=== PATIENT | female | born 1950 | race Caucasian/White ===

== ENCOUNTER 2020-12-19 14:09 | Outpatient (REF) | payer MEDICARE, SELFPAY ==
[2020-12-19 22:11] LABS: Vitamin D 25 Total 55.6 ng/mL (30-100)
[2020-12-19 22:16] LABS: Anion Gap 6.8 mmol/L (3-11); BUN 23 mg/dL (7-18); CO2 31.2 mmol/L (21.0-32.0); CREATININE 0.8 mg/dL (0.55-1.02); Calcium 8.9 mg/dL (8.5-10.1); Calculated LDL 83 mg/dL (<100); Chloride 105 mmol/L (98-107); Cholesterol 147 mg/dL (<200); Glucose 89 mg/dL (74-106); HDL Cholesterol 48 mg/dL (40-60); Potassium 4.1 mmol/L (3.5-5.1); Sodium 143 mmol/L (136-145); Triglyceride 80 mg/dL (<150); Vitamin B12 788 pg/mL (193-986)
== END 2020-12-19 14:10 | disposition home or self-care (01) ==
LOC: NCHCN 14:09
PROVIDERS: PCP Family Medicine; Visit Provider Nurse Practitioner Family
DX: E53.8 Deficiency of other specified B group vitamins (principal); E55.9 Vitamin D deficiency, unspecified; I10 Essential (primary) hypertension; E78.00 Pure hypercholesterolemia, unspecified
CPT/HCPCS: 80048; 80061; 82306; 82607; 84443

== ENCOUNTER → 2021-01-19 02:04 | Outpatient (CLI) | payer MEDICARE, SELFPAY ==
--- NOTE | 2021-01-19 | DI.US_ITS ---
Exam(s) US CAROTID EXAM: US CAROTID CLINICAL HISTORY: BILAT CAROTID ARTERY ATHEROSCLEROSIS,I65.23. TECHNIQUE: Ultrasound carotids performed using grayscale, color-flow, and spectral Doppler imaging. COMPARISON: No exams were available for comparison FINDINGS: CAROTID ARTERIES: There is some plaque noted in both common carotid arteries and carotid bulbs without elevated velocit ies at these levels. Mild plaque is noted level the proximal internal carotid arteries and their mil dly elevated velocities at mid ICA levels in the neck. Estimated stenosis moderate, approximately 50 -69 percent bilaterally. On this study the distal right ICA in the neck was not able visualized due significant tortuosity of this vessel. VERTEBRAL ARTERIES: Antegrade flow. Measurements: R Bulb: 59.8cm/s PS / 9cm/s ED R CCA: 77.1cm/s PS / 12.2cm/s ED R ECA: 151.8cm/s PS / 10.2cm/s ED R ICA Prox: 99cm/s PS /17.6cm/s ED R ICA Mid: 143.8cm/s PS / 25.6cm/s ED R ICA Distal: PS / ED R Vert: 61.1cm/s PS / 15.4cm/s ED R SVR: 1.87 R DVR: 2.1 L Bulb: 57.8cm/s PS /13.5cm/s ED L CCA: 59.1cm/s PS / 10.9cm/s ED L ECA: 164.1cm/s PS /9.5cm/s ED L ICA Prox:119.3cm/s PS / 32.5cm/s ED L ICA Mid: 132.3cm/sPS / 31.1cm/s ED L ICA Distal: 116.3cm/s PS / 25.1cm/s ED L Vert: 82.7cm/s PS / 12.1cm/s ED L SVR: 2.24 L DVR: 2.85 IMPRESSION: Plaque bilaterally in the proximal internal carotid arteries on both sides the neck consistent with 5 0-69 percent stenosis bilaterally. Flow is demonstrated to be antegrade in both vertebral arteries. Criteria for Carotid Stenosis: Normal: ICA PSV <125 cm/s no plaque or intimal thickening is visible. <50% stenosis: ICA PSV <125 cm/s and plaque or intimal thickening is visible. 50-69% stenosis: ICA PSV is 125-250 cm/s and plaque is visible. >70% stenosis to near occlusion: ICA PSV >250 cm/s with visible plaque and luminal narrowing. DATA REPOSITORY:
--- NOTE | 2021-01-19 09:05 | DI.MAMMO_ITS ---
Exam(s) MAMMO SCREENING EXAM: MAMMO SCREENING CLINICAL HISTORY: SCREENING MAMMO FOR BREAST CANCER Z12.31. TECHNIQUE: Bilateral full field digital CC and MLO mammographic images were obtained with 3D tomosyn thesis and utilizing computer aided detection (CAD). COMPARISON: Prior outside mammograms dating back to 2014, the most recent being October 2019. FINDINGS: There has been no significant change in the appearance and distribution of the fibroglandular tissue which is again noted be moderately dense, this somewhat decreasing the sensitivity of the mammogram f or finding hidden underlying lesions. There are no new spiculated masses nor malignant appearing microcalcification groups. There is no significant architectural distortion nor skin thickening-retraction. IMPRESSION: Dense bilateral fibroglandular tissue. No obvious radiographic evidence of malignancy and no signifi cant change compared to prior outside mammograms listed above. BI-RADS Category 1 - Negative Breast Density - Category C - Heterogeneously dense Breast density Category C or D implies that the patient has dense breast tissue. Dense breast tissue can make it harder to find cancer on a mammogram. Dense breast tissue is also associated with an incr eased risk of breast cancer. This information about the result of the mammogram report was provided to the patient to raise their awareness. Use this report when you speak with the patient about their risks for breast cancer, which includes their family history. At that time, you may recommend additional screening tests (Ultrasoun d or MRI) as these tests may add significant information. A negative radiographic report should not delay biopsy if a dominant or clinically suspicious mass is present. Up to ten percent of cancers are not identified on mammography. A negative report may reinforce clinical impression. Adenosis and dense breasts may obscure an underlying neoplasm. False positive reports average 6 to 10%. Patient will receive a letter notifying them of these results.
== END ==
PROVIDERS: PCP Nurse Practitioner Family; Visit Provider Nurse Practitioner Family
DX: I65.23 Occlusion and stenosis of bilateral carotid arteries (principal); Z12.31 Encounter for screening mammogram for malignant neoplasm of breast; R92.8 Other abnormal and inconclusive findings on diagnostic imaging of breast
CPT/HCPCS: 77063; 77067; 93880

== ENCOUNTER 2021-02-21 15:30 | Outpatient (REF) | payer MEDICARE, SELFPAY ==
[2021-02-21 13:14] LABS: TSH 3.62 uIU/mL (0.36-3.74)
== END 2021-02-21 15:31 | disposition home or self-care (01) ==
LOC: NCHCN 15:30
PROVIDERS: PCP Nurse Practitioner Family; Visit Provider Nurse Practitioner Family
DX: E03.9 Hypothyroidism, unspecified (principal)
CPT/HCPCS: 84443

== ENCOUNTER 2021-08-07 09:46 | Emergency (ER) | payer MEDICARE, SELFPAY ==
[2021-08-07 10:00] VITALS: BP 160/66; PULSE 87; RESP 17; TEMP 36.8; O2SAT 95
--- NOTE | 2021-08-07 11:10 | DI.RAD_ITS ---
Exam(s) XR FOREARM RT EXAM: XR FOREARM RT CLINICAL HISTORY: fall. TECHNIQUE: 2D digital imaging was performed. COMPARISON: No exams were available for comparison FINDINGS: Two views There is no evidence of fracture nor elbow joint effusion. No swelling of the olecranon bursa. Mild edema dorsally in the forearm but no radiopaque foreign body. No osseous findings. IMPRESSION: No fracture evident DATA REPOSITORY: RADIATION DOSE DELIVERED:
--- NOTE | 2021-08-07 11:10 | DI.RAD_ITS ---
Exam(s) XR WRIST RT COMPL NAVICULAR EXAM: XR WRIST RT COMPL NAVICULAR CLINICAL HISTORY: fall. TECHNIQUE: 2D digital imaging was performed. COMPARISON: No exams were available for comparison FINDINGS: Four views There is no evidence of acute fracture or carpal dislocation. No significant ulnar variance. Scapho id appears intact. No osseous lesions. IMPRESSION: No fracture evident. DATA REPOSITORY: RADIATION DOSE DELIVERED:
--- NOTE | 2021-08-07 11:10 | DI.RAD_ITS ---
Exam(s) XR WRIST LT COMP NAVICULAR EXAM: XR WRIST LT COMP NAVICULAR CLINICAL HISTORY: fall. TECHNIQUE: 2D digital imaging was performed. COMPARISON: CR XR WRIST RT COMPL NAVICULAR from 08/07/2021 FINDINGS: Four views No evidence of fracture nor carpal dislocation. No significant ulnar variance. No scaphoid fracture . Scapholunate distance is normal. Bone density is age-appropriate. No degenerative changes nor er osions evident. IMPRESSION: No fracture evident DATA REPOSITORY: RADIATION DOSE DELIVERED:
--- NOTE | 2021-08-07 11:20 | W.ED.GENAD ---
Discharge Plan Disposition Patient Disposition: HOME Condition: Stable Discharge Details Clinical Impression: Strain of wrist, bilateral Primary Care Provider: Rebecca Perdomo ED Provider: Ole Boggs Home Meds and New Rx's Prescriptions: No Action levothyroxine 75 mcg capsule 75 mcg PO DAILY diltiazem HCl 240 mg capsule,extended release 24hr 240 mg PO DAILY simvastatin 40 mg tablet 40 mg PO DAILY lisinopril 20 mg tablet 20 mg PO DAILY atenolol 25 MG tablet 25 mg PO HS Discharge Instructions Instructions: Wrist Sprain (ED) Additional Instructions: He may continue to use [id number] acetaminophen or Motrin as directed on packaging. Apply ice for swelling and wear the braces for at least 2 to 3 weeks with slow increase of use as tolerated by discomfort. If not having any improvement of signs or symptoms in the next 7 to 10 days please follow-up with primary care provider or orthopedist for reassessment. Referrals: Rebecca Perdomo [Primary Care Provider] - Discharge Data Discharge Date/Time-TO BE ENTERED AT DEPARTURE: 08/07/21 12:30 Medical Decision Making FOOSH injury yesterday evening with slight left injury. Patient does state that when she fell she slightly hit her glasses in the fall but denies any loss of consciousness, head injury, headache, or neurological findings. Patient reports a mechanical fall. Physical exam shows bilateral wrist tenderness with significant decreased range of motion of right wrist and anatomical snuffbox tenderness bilateral. Patient also has right forearm tenderness to the midshaft forearm and distal. Left wrist has more range of motion but still with significant tenderness. We will plan on performing radiological imaging to rule out acute fracture. Review of radiological imaging shows no acute signs of fracture bilateral. Patient placed in a thumb spica on the right given significant decreased range of motion and painful range of motion but in a normal the splint on left given that range of motion is intact. Close monitoring of symptoms along with return and follow-up precautions were discussed along with need of repeat imaging if not improving over the neck 7 to 10 days. After discussion of diagnosis and plan of care patient has no further needs, questions, or concerns and states clear understanding to return to the emergency department for any worsening symptoms. This documentation was generated using [employer] system, please disregard any oddities of phrase or misspellings. Imaging Data Radiologic Study: Imaging: X-Ray Radiologist's impression: FINDINGS:Left wrist Four views No evidence of fracture nor carpal dislocation. No significant ulnar variance. No scaphoid fracture. Scapholunate distance is normal. Bone density is age-appropriate. No degenerative changes nor erosions evident. IMPRESSION: No fracture eviden Radiologic Study #2: Imaging: X-Ray Radiologist's impression: FINDINGS:R Wrist Four views There is no evidence of acute fracture or carpal dislocation. No significant ulnar variance. Scaphoid appears intact. No osseous lesions. IMPRESSION: No fracture evident. FINDINGS:R forearm Two views There is no evidence of fracture nor elbow joint effusion. No swelling of the olecranon bursa. Mild edema dorsally in the forearm but no radiopaque foreign body. No osseous findings. IMPRESSION: No fracture evident HPI General Mode of arrival: ambulatory. Date/Time Provider Initiated Documentation: 08/07/21 10:17. Limitations to Documentation: no limitations. Information obtained by: patient and RN notes reviewed. History of Present Illness 70 year old F presents to the emergency department with the chief complaint of Fall on outstretched hands wrist pain, described as moderate, with intensity rated at 8. Quality is described as aching and constant, and is localized to the upper extremity. Patient proximal (right forearm). Patient started experiencing this day(s) (1) and it has been constant. Immobilization improves symptom(s), Movement worsens symptoms . Patient notes no other symptoms.. Related Data Home Medications Medication Instructions Recorded Confirmed atenolol 25 mg tablet 25 mg PO HS 07/18/14 08/07/21 diltiazem HCl 240 mg 240 mg PO DAILY 12/22/20 08/07/21 capsule,extended release 24 hr levothyroxine 75 mcg capsule 75 mcg PO DAILY 12/22/20 08/07/21 lisinopril 20 mg tablet 20 mg PO DAILY 12/22/20 08/07/21 simvastatin 40 mg tablet 40 mg PO DAILY 12/22/20 08/07/21 Allergies Allergy/AdvReac Type Severity Reaction Status Date / Time venom-honey bee Allergy Anaphylaxsi Unverified 08/07/21 10:04 [bee venom (honey bee)] s General Stated Complaint: Orthopedic JOSE: 4 Review of Systems Narrative: 6 systems reviewed and unremarkable except what is marked below. Cardiovascular Cardiovascular: Denies syncope Musculoskeletal Musculoskeletal: Reports as per HPI, Denies numbness and Denies tingling Integumentary/Breasts Skin/Breast: Denies rash, Denies sores and Denies wounds Neurologic Neurologic: Denies syncope, Denies numbness and Denies tingling [facility] All Active Problems (Updated 08/07/21 @ 12:17 by Ole Boggs NP) Strain of wrist, bilateral (Acute) Medical History (Updated 08/07/21 @ 12:17 by Ole Boggs NP) Allergic rhinitis Atherosclerosis of both carotid arteries Hypercholesterolemia Hyperplastic colon polyp Hypertension Hypothyroidism Mixed incontinence Tobacco abuse Vitamin B12 deficiency Vitamin D deficiency Surgical History (Updated 12/22/20 @ 13:33 by Moni Polanco RN) History of colonoscopy with polypectomy Per referral [facility] 10/21/2014 hyperplastic polyp transverse colon,5 yr FU recommended. Social History Smoking/Tobacco Use Status: Current every day Smoking risk assessment performed?: Yes Alcohol Intake: never Drug use: Never Substance use type: does not use Do you feel safe at home: Yes Do you feel safe in your relationship?: Yes Exam Const General: cooperative, no acute distress and not ill appearing Orientation: alert, awake and oriented x3 [facility] Head: normocephalic and atraumatic Resp Effort & Inspection: normal respiratory effort, able to speak in complete sentences and no respiratory distress Cardio Rate: regular rate Rhythm: regular rhythm Pulses: radial pulses present Skin General skin exam: no rashes or lesions noted Neuro General: patient alert, patient awake, patient oriented x3, moves all extremities and no focal motor deficits Sensory Exam: no sensory deficits noted Extrem General: capillary refill normal and normal exam except as noted Right upper extremity: elbow/forearm Details: tenderness Location: of the mid-shaft forearm and distal pulses intact and wrist Details: tenderness Location: of the anatomic snuffbox and of the dorsal wrist, swelling Location: of the dorsal wrist and abnormal ROM Details: held in an abnormal fashion Details: with extension and pain with active ROM during Details: with flexion, with ABduction and with ADduction Left upper extremity: wrist Details: tenderness Location: of the anatomic snuffbox and of the dorsal wrist and abnormal ROM Details: pain with active ROM Details: with ABduction and with ADduction Course Vital Signs Vital signs: Vital Signs Temperature 36.8 C 08/07/21 10:00 Pulse 87 08/07/21 10:00 Respiratory Rate 17 08/07/21 10:00 Blood Pressure 160/66 H 08/07/21 10:00 Pulse Oximetry 95 08/07/21 10:00 Temperature 36.8 C 08/07/21 10:00 Temperature Source Temporal Artery Scan 08/07/21 10:00 Pulse 87 08/07/21 10:00 Respiratory Rate 17 08/07/21 10:00 Respiratory Effort Non-Labored 08/07/21 10:03 Blood Pressure 160/66 H 08/07/21 10:00 Blood Pressure Position Sitting 08/07/21 10:00 Pulse Oximetry 95 08/07/21 10:00 Oxygen Delivery Method Room Air 08/07/21 10:00 Oxygen Flow Rate 0 08/07/21 10:00 Pain Level 8 08/07/21 10:05
== END 2021-08-07 12:30 | disposition home or self-care (01) ==
PROVIDERS: Emergency Provider Nurse Practitioner Family; PCP Nurse Practitioner Family
DX: S66.812A Strain of other specified muscles, fascia and tendons at wrist and hand level, left hand, initial encounter (principal); S66.811A Strain of other specified muscles, fascia and tendons at wrist and hand level, right hand, initial encounter; W18.39XA Other fall on same level, initial encounter
CPT/HCPCS: 29125; 29515; 99284; 73090; 73110; 99283

== ENCOUNTER → 2021-08-28 19:46 | Outpatient (CLI) | payer MEDICARE, SELFPAY ==
--- NOTE | 2021-08-28 16:11 | DI.RAD_ITS ---
Exam(s) XR RIBS LT W PA LAT CHEST CLINICAL HISTORY RIB PAIN, LEFT SIDE--R07.81. COMPARISON: No exams were available for comparison TECHNIQUE:: PA and lateral views of the chest and four views of the left ribs were performed. FINDINGS: Exam is somewhat limited by patient body habitus. LUNGS: Clear. No pleural abnormality seen. HEART: Normal size. Calcification at aortic arch. MEDIASTINUM: Normal. BONES: There are nondisplaced fractures of the left 7th and 8th ribs. Severe T12 compression fractur e, likely old.. No bony destructive lesion is seen. OTHER FINDINGS: None. IMPRESSION: 1. Nondisplaced left 7th and 8th rib fractures which appear acute.. Severe T12 compression fracture, likely old. 2. No acute pulmonary findings.
== END ==
PROVIDERS: PCP Nurse Practitioner Family; Visit Provider Nurse Practitioner Family
DX: S22.42XA Multiple fractures of ribs, left side, initial encounter for closed fracture (principal); X58.XXXA Exposure to other specified factors, initial encounter; Y99.8 Other external cause status; S22.089A Unspecified fracture of T11-T12 vertebra, initial encounter for closed fracture
CPT/HCPCS: 71046; 71100

== ENCOUNTER → 2021-09-07 10:18 | Outpatient (BNVA) | payer MEDICARE, SELFPAY | PROVIDERS: PCP Nurse Practitioner Family; Referring Provider Family Medicine; Visit Provider Physical Therapy Assistant | DX: Z12.11 Encounter for screening for malignant neoplasm of colon (principal); Z86.010 Personal history of colon polyps ==

== ENCOUNTER 2021-12-14 15:35 | Outpatient (REF) | payer MEDICARE, SELFPAY ==
[2021-12-14 15:18] LABS: Hemoglobin A1C 5.6 % (<5.7)
[2021-12-14 15:22] LABS: Anion Gap 7.5 mmol/L (3-11); BUN 20 mg/dL (7-18); CO2 29.5 mmol/L (21.0-32.0); CREATININE 0.7 mg/dL (0.55-1.02); Calcium 9.3 mg/dL (8.5-10.1); Calculated LDL 62 mg/dL (<100); Chloride 105 mmol/L (98-107); Cholesterol 144 mg/dL (<200); Estimated GFR 93.56 (mL/min/1.73m2); Glucose 110 mg/dL (74-106); HDL Cholesterol 55 mg/dL (40-60); Sodium 142 mmol/L (136-145); TSH 2.64 uIU/mL (0.36-3.74); Triglyceride 137 mg/dL (<150)
== END 2021-12-14 15:36 | disposition home or self-care (01) ==
LOC: NCHCN 15:35
PROVIDERS: PCP Nurse Practitioner Family; Visit Provider Nurse Practitioner Family
DX: E03.9 Hypothyroidism, unspecified (principal); E78.00 Pure hypercholesterolemia, unspecified; I10 Essential (primary) hypertension
CPT/HCPCS: 80048; 80061; 83036; 84443

== ENCOUNTER 2022-01-09 02:02 | Outpatient (CLI) | payer MEDICARE, SELFPAY ==
--- NOTE | 2022-01-09 | DI.US_ITS ---
Exam(s) US CAROTID EXAM: US CAROTID CLINICAL HISTORY: BILAT CAROTID ARTERY ATHEROSCLEROSIS I65.23. TECHNIQUE: Ultrasound carotids performed using grayscale, color-flow, and spectral Doppler imaging. COMPARISON: US US CAROTID from 01/19/2021 FINDINGS: RIGHT CAROTID ARTERY: Plaque: There is calcific plaque seen in the distal carotid artery, carotid bulb and proximal ICA. Velocity elevation: Please see below. LEFT CAROTID ARTERY: Plaque: There is calcific plaque seen in the mid and distal common carotid artery, carotid bulb and p roximal ICA. Velocity elevation: Please see below. VERTEBRAL ARTERIES: Antegrade flow. Measurements: R Bulb: 47.4 cm/s PS / 8.9 cm/s ED R CCA: 68.5 cm/s PS / 10.2 cm/s ED R ECA: 95.7 cm/s PS / 6.9 cm/s ED R ICA Prox: 146.2 cm/s PS / 21.9 cm/s ED R ICA Mid: 216.9 cm/s PS / 28.4 cm/s ED R ICA Distal: 180.5 cm/s PS /24.6 cm/s ED R Vert: 70.4 cm/s PS / 21.4 cm/s ED R SVR: 3.2 R DVR: 2.8 L Bulb: 44.4 cm/s PS / 10.4 cm/s ED L CCA: PS / 15.9 cm/s ED L ECA: 264.9 cm/s PS / 15.7 cm/s ED L ICA Prox: 117.9 cm/s PS / 25.2 cm/s ED L ICA Mid: 130.6 cm/s PS / 34 cm/s ED L ICA Distal: 124.4 cm/s PS / 30.9 cm/s ED L Vert: 102.6 cm/s PS / 30.9 cm/s ED L SVR: 1.5 L DVR: 2.1 IMPRESSION: 1. Atherosclerosis. 2. Velocity elevations bilateral consistent with 50-69 percent internal carotid artery stenosis. Criteria for Carotid Stenosis: Normal: ICA PSV <125 cm/s no plaque or intimal thickening is visible. <50% stenosis: ICA PSV <125 cm/s and plaque or intimal thickening is visible. 50-69% stenosis: ICA PSV is 125-250 cm/s and plaque is visible. >70% stenosis to near occlusion: ICA PSV >250 cm/s with visible plaque and luminal narrowing. DATA REPOSITORY:
== END 2022-01-09 02:22 ==
LOC: DI 02:02
PROVIDERS: PCP Nurse Practitioner Family; Visit Provider Nurse Practitioner Family
DX: I65.23 Occlusion and stenosis of bilateral carotid arteries (principal)
CPT/HCPCS: 93880

== ENCOUNTER 2022-06-18 09:09 | Outpatient (REF) | payer MEDICARE, SELFPAY ==
[2022-06-18 17:25] LABS: Hemoglobin A1C 5.2 % (<5.7)
[2022-06-18 17:27] LABS: Creatine Kinase 41 U/L (26-192)
== END 2022-06-18 09:10 | disposition home or self-care (01) ==
LOC: NCHCN 09:09
PROVIDERS: PCP Nurse Practitioner Family; Visit Provider Nurse Practitioner Family
DX: E78.00 Pure hypercholesterolemia, unspecified (principal); I10 Essential (primary) hypertension; R73.09 Other abnormal glucose
CPT/HCPCS: 82550; 83036

== ENCOUNTER 2022-09-19 07:01 | Emergency (ER) | payer MEDICARE, SELFPAY ==
[2022-09-19 07:05] VITALS: BP 159/66; PULSE 85; RESP 16; TEMP 36.8; O2SAT 96
--- NOTE | 2022-09-19 07:24 | ED.GENADUL_ITS ---
Discharge Plan Disposition Patient Disposition: Home Condition: Stable Discharge Details Clinical Impression: Allergic reaction to bee sting Primary Care Provider: Rebecca Perdomo ED Provider: Jasvir Warren Meds and New Rx's Prescriptions: New methylprednisolone [Methylpred DP] 4 mg tablets,dose pack See Rx Instructions .ROUTE .COMPLEX Qty: 21 0RF Rx Instructions: orally per package directions epinephrine [EpiPen 2-Cecilio] 0.3 mg/0.3 mL auto-injector 0.3 mg IM ONCE Qty: 2 0RF Rx Instructions: as a single dose; may repeat once Continued cholecalciferol (vitamin D3) 10 mcg (400 unit) capsule 10 mcg PO DAILY aspirin [Adult Aspirin Regimen] 81 mg tablet,delayed release (DR/EC) 81 mg PO DAILY omega 4-syl-ubd-fish oil [Fish Oil] 60-90-500 mg capsule 1 cap PO DAILY bisacodyl [Dulcolax (bisacodyl)] 5 mg tablet,delayed release (DR/EC) 5 mg PO ONCE Qty: 4 0RF Patient Comments: PT states not taking ML 09/19/22 Rx Instructions: Take according to provider's instructions for colonoscopy prep. polyethylene glycol 3350 17 gram/dose powder 17 g PO ONCE Qty: 238 0RF Patient Comments: Pt states not taking 09/19/22 Rx Instructions: To be taken as directed by prescriber's office for colonoscopy prep. diltiazem HCl 240 mg capsule,extended release 24hr 240 mg PO DAILY simvastatin 40 mg tablet 40 mg PO DAILY lisinopril 20 mg tablet 20 mg PO DAILY levothyroxine 75 mcg capsule 88 mcg PO DAILY atenolol 25 MG tablet 25 mg PO HS Patient Comments: Pt states not taking ML 09/19/22 Discharge Instructions Instructions: Insect Bite or Sting (ED), General Allergic Reaction (ED) Discharge Data Discharge Physician: Jasvir Warren Medical Decision Making Patient with a bee sting who is allergic to the venom who sustained swelling of the right hand and her lips her lips have subsided but the right hand still swollen she will be given prednisone 40 mg in the emergency department and will be discharged on a tapering dose of steroids HPI General Date/Time Provider Initiated Documentation: 09/19/22 07:12 . HPI Narrative: Patient presents emergency department after she got stung by a bee on Saturday night 2 days ago into her right hand spearing swelling of the hand and some swelling of her lips which she is allergic to bees. The swelling of the lips subsided but the swelling of the hand still persists recent she came to the emergency department for evaluation after she went to urgent care and they told her she had to come to the ED. Denies any dizziness denies any headache denies any nausea denies any vomiting. Related Data Home Medications Medication Instructions Recorded Confirmed atenolol 25 mg tablet 25 mg PO HS 07/18/14 09/07/21 diltiazem HCl 240 mg 240 mg PO DAILY 12/22/20 09/19/22 capsule,extended release 24 hr lisinopril 20 mg tablet 20 mg PO DAILY 12/22/20 09/19/22 simvastatin 40 mg tablet 40 mg PO DAILY 12/22/20 09/19/22 aspirin 81 mg tablet,delayed 81 mg PO DAILY 09/07/21 09/19/22 release (Adult Aspirin Regimen) bisacodyl 5 mg tablet,delayed 5 mg PO ONCE #4 tabs 09/07/21 09/07/21 release (Dulcolax (bisacodyl)) cholecalciferol (vitamin D3) 10 10 mcg PO DAILY 09/07/21 09/19/22 mcg (400 unit) capsule levothyroxine 75 mcg capsule 88 mcg PO DAILY 09/07/21 09/19/22 omega 5-abb-lsg-fish oil 60 mg-90 1 cap PO DAILY 09/07/21 09/19/22 mg-500 mg capsule (Fish Oil) polyethylene glycol 3350 17 17 g PO ONCE #238 grams 09/07/21 09/07/21 gram/dose oral powder epinephrine 0.3 mg/0.3 mL 0.3 mg (0.3 mL) IM ONCE #2 ea 09/19/22 injection, auto-injector (EpiPen 2-Cecilio) methylprednisolone 4 mg tablets in See Rx Instructions PO .COMPLEX 09/19/22 a dose pack (Methylpred DP) #21 dose pk Previous Rx's Medication Instructions Recorded bisacodyl 5 mg tablet,delayed 5 mg PO ONCE #4 tabs 09/07/21 release (Dulcolax (bisacodyl)) polyethylene glycol 3350 17 17 g PO ONCE #238 grams 09/07/21 gram/dose oral powder epinephrine 0.3 mg/0.3 mL 0.3 mg (0.3 mL) IM ONCE #2 ea 09/19/22 injection, auto-injector (EpiPen 2-Cecilio) methylprednisolone 4 mg tablets in See Rx Instructions PO .COMPLEX 09/19/22 a dose pack (Methylpred DP) #21 dose pk Allergies Allergy/AdvReac Type Severity Reaction Status Date / Time venom-honey bee Allergy Anaphylaxsi Unverified 09/19/22 07:10 [bee venom (honey bee)] s General Stated Complaint: Allergic JOSE: 3 Review of Systems Narrative: Review of Systems: Constitutional: No fevers, chills, sweats Eye: No recent visual problems ENT: No ear pain, nasal congestion, sore throat Respiratory: No shortness of breath, cough Cardiovascular: No Chest pain, palpitations, syncope Gastrointestinal: No nausea, vomiting, diarrhea Genitourinary: No hematuria Aquilino/Lymph: Negative for bruising tendency, swollen lymph glands Endocrine: Negative for excessive thirst, excessive hunger Musculoskeletal: No back pain, neck pain, joint pain, muscle pain, decreased range of motion Integumentary: pruritus, abrasions Neurologic: Alert & oriented X 4 Psychiatric: No anxiety, depression [facility] All Active Problems (Updated 09/19/22 @ 07:27 by Jasvir Warren MD) Allergic reaction to bee sting (Acute) Medical History Allergic rhinitis Atherosclerosis of both carotid arteries Hypercholesterolemia Hyperplastic colon polyp Hypertension Hypothyroidism Mixed incontinence Tobacco abuse Vitamin B12 deficiency Vitamin D deficiency Surgical History History of colonoscopy with polypectomy Per referral [facility] 10/21/2014 hyperplastic polyp transverse colon,5 yr FU recommended. Social History Smoking/Tobacco Use Status: Former Tobacco Use Quit status: considering quitting Smoking risk assessment performed?: Yes Alcohol Intake: never Drug use: Never Substance use type: does not use Housing: house Do you feel safe at home: Yes Do you feel safe in your relationship?: Yes Exam Narrative Exam Narrative: Exam; vitals signs as reported above normal Constitutional; In no acute distress, afebrile General: cooperative, healthy appearing, comfortable and no acute distress HEENT: Head: normal to inspection, no palpable skull fracture and normocephalic atraumatic Eyes: : appearance normal, both eyes and all related structures EOM intact bilaterally Pupils: PERRL : conjunctiva normal Direct ophthalmoscopy: normal light reflex, normal conjunctiva, normal visual acuity Ears: Normal TM, normal external canal Neck no JVD, supple non tender Neck: normal visual inspection, full ROM and no lymphadenopathy Chest: normal inspection of the chest Respiratory : normal respiratory effort and able to speak in complete sentences no wheezing no rales Cardio Rate: regular rate, rhythm: regular rhythm normal heart sounds S1 and S2 no murmurs, gallops, or rubs GI : normal to inspection, normal bowel sounds, soft, non tender, non distended, no organomegaly Back/Spine/ no CVA tenderness Thoracic/Lumbar Spine: no tenderness or deformities Skin no rashes or lesions induration and swelling of the dorsal aspect of the right hand Neuro: patient alert and no meningeal signs, Cranial Nerves: CN's II-XI intact bilaterally, Cognition: normal cognition, Speech: speech normal, Gait: normal g ait, Depp tendon reflexes normal 2+ muscle strength 5/5 bilaterally Extremities, no edema, full range of motion, normal strength Course Vital Signs Vital signs: Vital Signs Temperature 36.8 C 09/19/22 07:05 Pulse 85 09/19/22 07:05 Respiratory Rate 16 09/19/22 07:05 Blood Pressure 159/66 H 09/19/22 07:05 Pulse Oximetry 96 09/19/22 07:05 Temperature 36.8 C 09/19/22 07:05 Temperature Source Oral 09/19/22 07:05 Pulse 85 09/19/22 07:05 Respiratory Rate 16 09/19/22 07:05 Respiratory Effort Normal, Non-Labored 09/19/22 07:13 Respiratory Pattern Normal 09/19/22 07:13 Blood Pressure 159/66 H 09/19/22 07:05 Blood Pressure Position Sitting 09/19/22 07:05 Pulse Oximetry 96 09/19/22 07:05 Oxygen Delivery Method Room Air 09/19/22 07:05 Oxygen Flow Rate 0 09/19/22 07:05 Pain Level 0 09/19/22 07:05
[2022-09-19] MEDS: predniSONE 20 MG TAB 40 MG PO (07:33)
== END 2022-09-19 07:40 | disposition home or self-care (01) ==
PROVIDERS: Emergency Provider Emergency Medicine Emergency Medical Services; PCP Nurse Practitioner Family
DX: T63.441A Toxic effect of venom of bees, accidental (unintentional), initial encounter (principal)
CPT/HCPCS: 99283; 99284; J7512

== ENCOUNTER 2022-12-17 14:07 | Outpatient (REF) | payer MEDICARE, SELFPAY ==
[2022-12-17 15:32] LABS: Abs Immature Grans 0.01 10^3/uL (0.0-0.06); Absolute Basophil Count 0.05 10^3/uL (0.0-0.2); Absolute Eosinophil Count 0.22 10^3/uL (0.0-0.7); Absolute Monocyte Count 0.46 10^3/uL (0.1-0.8); Absolute Neutrophil Count 4.82 10^3/uL (1.2-6.7); Basophils % 0.7; Eosinophils % 2.9; HCT 45.1 % (36.0-46.0); HGB 14.9 g/dL (11.2-15.7); Immature Grans % 0.1; Lymphocytes % 27.4; MCH 29.7 pg (27.0-33.0); MCV 90 fL (80-95); MPV 10.7 fL (8.0-11.0); Neutrophils % 62.9; Platelet Count 219 10^3/uL (130-400); RBC 5.01 10^6/uL (3.93-5.22); RDW-SD 49.5 fL; WBC 7.66 10^3/uL (4.4-10.8)
[2022-12-17 16:17] LABS: ALT 17 U/L (14-59); AST 18 U/L (15-37); Albumin 3.7 g/dL (3.4-5.0); Alkaline Phosphatase 86 U/L (46-116); Anion Gap 10.9 mmol/L (3-11); BUN 14 mg/dL (7-18); Bilirubin, Total 0.6 mg/dL (0.2-1.0); CO2 25.1 mmol/L (21.0-32.0); CREATININE 0.7 mg/dL (0.55-1.02); Calcium 9.7 mg/dL (8.5-10.1); Calculated LDL 86 mg/dL (<100); Chloride 103 mmol/L (98-107); Cholesterol 157 mg/dL (<200); Estimated GFR 92.98 (mL/min/1.73m2); Glucose 93 mg/dL (74-106); HDL Cholesterol 59 mg/dL (40-60); Potassium 4.1 mmol/L (3.5-5.1); Sodium 139 mmol/L (136-145); Total Protein 7.7 g/dL (6.4-8.2); Triglyceride 64 mg/dL (<150); Vitamin B12 843 pg/mL (193-986)
[2022-12-17 16:25] LABS: Hemoglobin A1C 5.6 % (<5.7)
[2022-12-17 17:06] LABS: Vitamin D 25 Total 79.5 ng/mL (30-100)
== END 2022-12-17 14:08 | disposition home or self-care (01) ==
LOC: NCHCN 14:07
PROVIDERS: PCP Nurse Practitioner Family; Visit Provider Nurse Practitioner Family
DX: E03.9 Hypothyroidism, unspecified (principal); E55.9 Vitamin D deficiency, unspecified; I10 Essential (primary) hypertension; E53.9 Vitamin B deficiency, unspecified; F17.200 Nicotine dependence, unspecified, uncomplicated
CPT/HCPCS: 80053; 80061; 82306; 82607; 83036; 84443; 85025

== ENCOUNTER → 2023-01-04 00:09 | Outpatient (CLI) | payer MEDICARE, SELFPAY ==
--- NOTE | 2023-01-04 | DI.CTLCSR_ITS ---
Exam(s) CT CHEST LUNG CANCER SCREEN EXAM: CT CHEST LUNG CANCER SCREEN CLINICAL HISTORY: SMOKER F17.210 SCREENING FOR LUNG CANCER TECHNIQUE: Imaging Protocol: Axial computed tomography images with coronal and sagittal reformatted images were created and reviewed COMPARISON: CR XR RIBS LT W PA LAT CHEST from 08/28/2021 FINDINGS: Tracheobronchial tree: Patent where visualized. Pulmonary parenchyma: No consolidation or dominant measurable mass. No architectural distortion. Lung Nodules: There is a 3 mm nodule in the periphery of the right lower lobe. (Series 4, image 353) . There is a 7 mm nodule in the medial aspect of the left lingula. (Series 3, image 256). Mediastinum and Sary: No dominant adenopathy or fluid collection. The esophagus is unremarkable. Lymph nodes: Unremarkable. Pleura: No effusion or pneumothorax. Heart: The heart is not dilated. Coronary artery calcifications and/or stents are present. No perica rdial effusion. Aorta: Thoracic aorta non-dilated.Atherosclerosis. Upper abdomen: Unremarkable. Soft Tissues: Unremarkable. Bones: Within normal limits for the patient's age. There is an old L1 compression fracture deformity . IMPRESSION: Two lung nodules. The largest measures 7 mm. Lung RADS Cat 3 - Probably Benign: Probably benign finding(s) - short term follow-up suggested; inclu de nodules with a low likelihood of becoming a clinically active cancer. Lung-RADS 1.0 CATEGORIES: Category 0 - Prior chest CT exam(s) being located for comparison. Category 1 - Annual screening in 12 months. No nodules or definitely benign nodules. Category 2 - Annual screening in 12 months. Benign appearance. Nodules with low likelihood of becomin g active cancer. Category 3 - 6-month follow-up. Probably benign. Short-term follow-up suggested. Nodules with low lik elihood of becoming active cancer. Category 4A - 3-month follow-up and CT/PET if >8 mm in size. Suspicious finding. Findings which requi re additional testing. Category 4B - Findings which require additional testing and tissue sampling. Suspicious finding. Category 4X - Category 3 or 4 nodules with additional features or imaging findings that increases the suspicion of malignancy. Modifier S- Potentially clinically significant finding. (Non lung cancer) RADIATION DOSE DELIVERED: Total DLP Total DLP DATA REPOSITORY: All CT scans at this facility are submitted to the National Radiology Data Registry (NRDR) Dose Index Registry (DIR) with the [employer] (A[employer]). RADIATION OPTIMIZATION: All CT scans at this facility use at least one of these dose optimization te chniques: automated exposure control; mA and/or kV adjustment per patient size (includes targeted exa ms where dose is matched to clinical indication); or iterative reconstruction.
--- NOTE | 2023-01-04 07:45 | DI.MAMMO_ITS ---
Exam(s) MAMMO SCREENING EXAM: MAMMO SCREENING CLINICAL HISTORY: SCREENING FOR BREAST CANCER Z12.31 TECHNIQUE: Bilateral full field digital CC and MLO mammographic images were obtained with 3D tomosyn thesis and utilizing computer aided detection (CAD). COMPARISON: Available for comparison. FINDINGS: Masses/Architectural Distortion: None seen. Microcalcifications: No suspicious pleomorphic-type are seen. Skin Thickening/Nipple Retraction: None. IMPRESSION: 1. No significant interval change with no specific features of malignancy noted. 2. Unless there is more urgent need, screening mammography is recommended, as per [employer] guidelines. BI-RADS Category 1 - Negative Breast Density - Category C - Heterogeneously dense Breast density category C or D implies that the patient has dense breast tissue. Dense breast tissue is very common and is not abnormal but dense breast tissue can make it harder to find cancer on a ma mmogram. Also, dense breast tissue may increase their breast cancer risk. This information about the result of the mammogram report was provided to the patient to raise their awareness. Use this report when you speak with the patient about their risks for breast cancer, which includes their family hist ory. At that time, you may recommend for more screening tests (Ultrasound or MRI) as they might be us eful based on their risk. A negative radiographic report should not delay biopsy if a dominant or clinically suspicious mass is present. Up to ten percent of cancers are not identified on mammography. A negative report may reinforce clinical impression. Adenosis and dense breasts may obscure an underlying neoplasm. False positive reports average 6 to 10%. Patient will receive a letter notifying them of these results.
== END ==
PROVIDERS: PCP Nurse Practitioner Family; Visit Provider Nurse Practitioner Family
DX: F17.210 Nicotine dependence, cigarettes, uncomplicated (principal); Z12.2 Encounter for screening for malignant neoplasm of respiratory organs; R91.8 Other nonspecific abnormal finding of lung field; Z12.31 Encounter for screening mammogram for malignant neoplasm of breast
CPT/HCPCS: 71271; 77063; 77067

== ENCOUNTER → 2023-01-10 00:42 | Outpatient (CLI) | payer MEDICARE, SELFPAY ==
--- NOTE | 2023-01-10 | DI.US_ITS ---
Exam(s) US CAROTID EXAM: US CAROTID CLINICAL HISTORY: I65.29 Occlusion and stenosis of unspecified carotid artery. TECHNIQUE: Ultrasound carotids performed using grayscale, color-flow, and spectral Doppler imaging. COMPARISON: US US CAROTID from 01/09/2022 FINDINGS: RIGHT CAROTID ARTERY: Plaque: Moderate calcific plaque is seen in the common carotid artery, carotid bulb and proximal and mid internal carotid arteries. Velocity elevation: Yes. Please see below. LEFT CAROTID ARTERY: Plaque: Moderate calcific plaque is seen in the common carotid artery, carotid bulb and proximal inte rnal carotid artery. Velocity elevation: None. VERTEBRAL ARTERIES: Antegrade flow. Measurements: R Bulb: 58.2 cm/s PS / 11.5 cm/s ED R CCA: 77.6 cm/s PS / 14.1 cm/s ED R ECA: 106.6 cm/s PS / 11.4 cm/s ED R ICA Prox: 130.8 cm/s PS / 27.1 cm/s ED R ICA Mid: 234.1 cm/s PS / 56.7 cm/s ED R ICA Distal: 225.9 cm/s PS /37.4 cm/s ED R Vert: 48.9 cm/s PS / 14.6 cm/s ED R SVR: 3 R DVR: 4 L Bulb: 45.2 cm/s PS / 6 cm/s ED L CCA: 69.7 cm/s PS / 15.8 cm/s ED L ECA: 105.2 cm/s PS / 24.4 cm/s ED L ICA Prox: 55 cm/s PS / 15.8 cm/s ED L ICA Mid: 110.6 cm/s PS / 28 cm/s ED L ICA Distal: 114.9 cm/s PS / 25.9 cm/s ED L Vert: 78.2 cm/s PS / 21.9 cm/s ED L SVR: 1.6 L DVR: 1.6 IMPRESSION: 1. Greater than 70 percent stenosis of the right internal carotid artery. Atherosclerosis is present . 2. No hemodynamically significant stenosis is seen on the left. Criteria for Carotid Stenosis: Normal: ICA PSV <125 cm/s no plaque or intimal thickening is visible. <50% stenosis: ICA PSV <125 cm/s and plaque or intimal thickening is visible. 50-69% stenosis: ICA PSV is 125-250 cm/s and plaque is visible. >70% stenosis to near occlusion: ICA PSV >250 cm/s with visible plaque and luminal narrowing. DATA REPOSITORY:
== END ==
PROVIDERS: PCP Nurse Practitioner Family; Visit Provider Nurse Practitioner Family
DX: I65.21 Occlusion and stenosis of right carotid artery (principal)
CPT/HCPCS: 93880

== ENCOUNTER → 2023-02-14 01:28 | Outpatient (CLI) | payer MEDICARE, SELFPAY ==
--- NOTE | 2023-02-14 | DI.DEXA_ITS ---
Exam(s) XR DEXA BONE DENSITY W/WO TOO EXAM: XR DEXA BONE DENSITY W/WO TOO CLINICAL HISTORY: SCREENING FOR OSTEOPOROSIS, Z78.0 IN POSTMENOPAUSAL WOMAN TECHNIQUE: COMPARISON: CT CT CHEST LUNG CANCER SCREEN from 01/04/2023 FINDINGS: Lateral Spine Image: There is an old L1 compression fracture deformity. Left hip: Total T-Score: -1.4 Total Z-Score: 0.1 T- and Z-scores: Findings are consistent with osteopenia. Lumbar Spine: Total T-Score: -0.9 Total Z-Score: 1.2 T- and Z-scores: Within normal limits. Left forearm: Total T-score:-2.9 Total Z-score:-0.9 T and Z scores: Findings are consistent with osteoporosis. IMPRESSION: Osteoporosis in the left forearm.
== END ==
PROVIDERS: PCP Nurse Practitioner Family; Visit Provider Nurse Practitioner Family
DX: Z78.0 Asymptomatic menopausal state (principal); Z13.820 Encounter for screening for osteoporosis; M81.0 Age-related osteoporosis without current pathological fracture
CPT/HCPCS: 77080

== ENCOUNTER 2023-08-05 15:55 | Outpatient (REF) | payer MEDICARE, SELFPAY ==
[2023-08-05 16:20] LABS: Hemoglobin A1C 5.7 % (<5.7)
[2023-08-05 17:22] LABS: ALT 19 U/L (14-59); AST 17 U/L (15-37); Albumin 3.8 g/dL (3.4-5.0); Alkaline Phosphatase 75 U/L (46-116); Anion Gap 9.3 mmol/L (3-11); BUN 14 mg/dL (7-18); Bilirubin, Total 0.75 mg/dL (0.2-1.0); CO2 27.7 mmol/L (21.0-32.0); CREATININE 0.9 mg/dL (0.55-1.02); Calcium 9.8 mg/dL (8.5-10.1); Chloride 105 mmol/L (98-107); Estimated GFR 68.77 (mL/min/1.73m2); Glucose 96 mg/dL (74-106); Potassium 4.3 mmol/L (3.5-5.1); Sodium 142 mmol/L (136-145); Total Protein 7.7 g/dL (6.4-8.2)
[2023-08-05 17:54] LABS: COMMENT (LAB VIEW ONLY) 39.13 mg/dL
[2023-08-05 18:03] LABS: Microalb ug/mg Crea 321.7 ug/mg Cr
== END 2023-08-05 15:56 | disposition home or self-care (01) ==
LOC: NCHCN 15:55
PROVIDERS: PCP Nurse Practitioner Family; Visit Provider Nurse Practitioner Family
DX: I65.23 Occlusion and stenosis of bilateral carotid arteries (principal); R82.998 Other abnormal findings in urine; E03.9 Hypothyroidism, unspecified; I10 Essential (primary) hypertension; Z79.899 Other long term (current) drug therapy
CPT/HCPCS: 80053; 82043; 82570; 83036

== ENCOUNTER → 2023-08-16 01:43 | Outpatient (CLI) | payer MEDICARE, SELFPAY ==
--- NOTE | 2023-08-16 | DI.US_ITS ---
Exam(s) US RENAL EXAM: US RENAL CLINICAL HISTORY: ALBUMINURIA,R80.9 TECHNIQUE: Ultrasound of both kidneys performed using standard protocol. COMPARISON: CT CT CHEST LUNG CANCER SCREEN from 01/04/2023 US US CAROTID from 01/10/2023 FINDINGS: RIGHT KIDNEY: Measures 10.3 cm in length. No cysts evident. Normal cortical thickness and corticomedullary differen tiation .No solid masses No intrarenal calculi nor hydronephrosis. LEFT KIDNEY: Measures 10.7 cm in length. No cysts evident. Normal cortical thickness and corticomedullary differe ntiaion. No solids masses. No intrarenal calculi nor hydonephrosis. URINARY BLADDER: Prevoid volume is 39 cc Postvoid volume is 0 cc No evidence of bladder mass nor diverticuli. Ureterovesical jets: Both not visualized IMPRESSION: 1. No significant ultrasound findings in the kidneys. No hydronephrosis 2. Suboptimal evaluation of the bladder because there was only 39 cc of urine in the bladder lumen a t time of this examination DATA REPOSITORY:
== END ==
PROVIDERS: PCP Nurse Practitioner Family; Visit Provider Nurse Practitioner Family
DX: R80.9 Proteinuria, unspecified (principal)
CPT/HCPCS: 76770

== ENCOUNTER 2023-08-23 16:06 | Outpatient (REF) | payer MEDICARE, SELFPAY ==
[2023-08-23 12:17] LABS: PROTEIN 97.6 mg/dL (0.0-11.9)
[2023-08-23 12:18] LABS: TOTAL PROTEIN,URINE TIMED 1244.4 mg/24hr (0.0-149.1); Total Volume 1275 ml
== END 2023-08-23 16:07 | disposition home or self-care (01) ==
LOC: NCHCN 16:06
PROVIDERS: PCP Nurse Practitioner Family; Visit Provider Nurse Practitioner Family
DX: R80.9 Proteinuria, unspecified (principal)
CPT/HCPCS: 81050; 84155

== ENCOUNTER 2023-09-05 11:10 | Outpatient (REF) | payer MEDICARE, SELFPAY ==
[2023-09-05 15:43] LABS: Anion Gap 8.6 mmol/L (3-11); BUN 16 mg/dL (7-18); CO2 28.4 mmol/L (21.0-32.0); CREATININE 0.9 mg/dL (0.55-1.02); Calcium 9.6 mg/dL (8.5-10.1); Chloride 104 mmol/L (98-107); Estimated GFR 68.77 (mL/min/1.73m2); Glucose 114 mg/dL (74-106); Potassium 3.9 mmol/L (3.5-5.1); Sodium 141 mmol/L (136-145)
[2023-09-05 16:21] LABS: COMMENT (LAB VIEW ONLY) 197.69 mg/dL
[2023-09-05 16:40] LABS: Microalb ug/mg Crea 219.7 ug/mg Cr
== END 2023-09-05 11:11 | disposition home or self-care (01) ==
LOC: NCHCN 11:10
PROVIDERS: PCP Nurse Practitioner Family; Visit Provider Nurse Practitioner Family
DX: R80.8 Other proteinuria (principal); I10 Essential (primary) hypertension; E03.9 Hypothyroidism, unspecified
CPT/HCPCS: 80048; 82043; 82570

== ENCOUNTER 2023-09-12 15:45 | Outpatient (REF) | payer MEDICARE, SELFPAY ==
[2023-09-16 11:12] LABS: Lyme Ab w Rflx to Lyme Confirm Negative (Negative)
[2023-09-16 17:24] LABS: Anaplasma phagocytophilum Negative (Negative); B. miyamotoi PCR Negative (Negative); Babesia divergens/MO-1 Negative (Negative); Babesia duncani Negative (Negative); Babesia microti Negative (Negative); Ehrlichia chaffeensis Negative (Negative); Ehrlichia ewingii/canis Negative (Negative); Ehrlichia muris eauclairensis Negative (Negative)
== END 2023-09-12 15:46 | disposition home or self-care (01) ==
LOC: NCHCN 15:45
PROVIDERS: PCP Nurse Practitioner Family; Visit Provider Nurse Practitioner Family
DX: T63.481A Toxic effect of venom of other arthropod, accidental (unintentional), initial encounter (principal); T14.8XXA Other injury of unspecified body region, initial encounter
CPT/HCPCS: 87798; 86618

== ENCOUNTER 2024-01-02 11:05 | Outpatient (REF) | payer MEDICARE, SELFPAY ==
[2024-01-02 16:46] LABS: Hemoglobin A1C 5.8 % (<5.7)
[2024-01-02 16:53] LABS: TSH 3.26 uIU/mL (0.36-3.74)
[2024-01-03 12:21] LABS: Albumin 55.5 % (55.8-66.1); Albumin g/dL 3.8 g/dL (3.6-5.2); Total Protein 6.8 g/dL (6.3-8.2)
== END 2024-01-02 11:06 | disposition home or self-care (01) ==
LOC: NCHCN 11:05
PROVIDERS: PCP Nurse Practitioner Family; Visit Provider Nurse Practitioner Family
DX: R73.03 Prediabetes (principal); E03.9 Hypothyroidism, unspecified
CPT/HCPCS: 83036; 84165; 84443

== ENCOUNTER 2024-01-06 01:07 | Outpatient (CLI) | payer MEDICARE, SELFPAY ==
--- NOTE | 2024-01-06 | DI.CTLCSR_ITS ---
Exam(s) CT CHEST LUNG CANCER SCREEN EXAM: CT CHEST LUNG CANCER SCREEN CLINICAL HISTORY: SMOKER, F17.210, SCREENING FOR LUNG CANCER TECHNIQUE: Imaging Protocol: Axial computed tomography images with coronal and sagittal reformatted images were created and reviewed. Computer aided detection (CAD) was utilized. COMPARISON: CT CT CHEST LUNG CANCER SCREEN from 01/04/2023 FINDINGS: Tracheobronchial tree: Patent where visualized. No bronchiectasis. Pulmonary parenchyma: No consolidation or dominant measurable mass. There are areas of atelectasis in the lungs. Mild emphysematous changes are present. Lung Nodules: The 7 mm nodule in the medial aspect of the left lingula is unchanged. (Series 2, imag e 64). The 3 mm nodule in the lateral aspect of the right lower lobe is unchanged. (Series 2, image 88). There are other smaller nodule seen in the lungs which are unchanged. There are no new pulmon kimberly nodules. Mediastinum and Sary: No dominant adenopathy or fluid collection. The esophagus is unremarkable. Lymph nodes: Unremarkable. Pleura: No effusion or pneumothorax. Heart: The heart is not dilated. Three vessel coronary artery calcification is present. No pericardi al effusion. Aorta: Thoracic aorta non-dilated.Atherosclerotic calcification is present. Upper abdomen: No acute abnormality is identified. Soft Tissues: Unremarkable. Bones: Within normal limits. There is an old stable L1 compression fracture deformity. IMPRESSION: No new pulmonary nodules. Lung RADS Cat 2 - Benign Appearance / Behavior: Nodules with a very low likelihood of becoming a clin ically active cancer due to size or lack of growth Lung-RADS 1.0 CATEGORIES: Category 0 - Prior chest CT exam(s) being located for comparison. Category 1 - Annual screening in 12 months. No nodules or definitely benign nodules. Category 2 - Annual screening in 12 months. Benign appearance. Nodules with low likelihood of becomin g active cancer. Category 3 - 6-month follow-up. Probably benign. Short-term follow-up suggested. Nodules with low lik elihood of becoming active cancer. Category 4A - 3-month follow-up and CT/PET if >8 mm in size. Suspicious finding. Findings which requi re additional testing. Category 4B - Findings which require additional testing and tissue sampling. Suspicious finding. Category 4X - Category 3 or 4 nodules with additional features or imaging findings that increases the suspicion of malignancy. Modifier S- Potentially clinically significant finding. (Non lung cancer) RADIATION DOSE DELIVERED: 103.54mGy.cm Total DLP 103.54mGy.cmTotal DLP DATA REPOSITORY: All CT scans at this facility are submitted to the National Radiology Data Registry (NRDR) Dose Index Registry (DIR) with the [employer] ([employer]). RADIATION OPTIMIZATION: All CT scans at this facility use at least one of these dose optimization te chniques: automated exposure control; mA and/or kV adjustment per patient size (includes targeted exa ms where dose is matched to clinical indication); or iterative reconstruction.
== END 2024-01-06 01:27 ==
LOC: DI 01:08
PROVIDERS: PCP Nurse Practitioner Family; Visit Provider Nurse Practitioner Family
DX: Z12.2 Encounter for screening for malignant neoplasm of respiratory organs (principal); F17.210 Nicotine dependence, cigarettes, uncomplicated
CPT/HCPCS: 71271

== ENCOUNTER 2024-02-13 10:15 | Outpatient (REF) | payer MEDICARE, SELFPAY ==
[2024-02-13 12:59] LABS: PROTEIN 32.1 mg/dL (0.0-11.9)
[2024-02-13 13:06] LABS: TOTAL PROTEIN,URINE TIMED 417.3 mg/24hr (0.0-149.1); Total Volume 1300 ml
== END 2024-02-13 10:16 | disposition home or self-care (01) ==
LOC: NCHCN 10:15
PROVIDERS: PCP Nurse Practitioner Family; Visit Provider Nurse Practitioner Family
DX: R80.8 Other proteinuria (principal)
CPT/HCPCS: 81050; 84155

== ENCOUNTER 2024-08-21 12:09 | Outpatient (REF) | payer MEDICARE, SELFPAY | END 2024-08-21 12:10 | disposition home or self-care (01) | LOC: NCHCN 12:09 | PROVIDERS: PCP Nurse Practitioner Family; Visit Provider Nurse Practitioner Family | DX: K76.0 Fatty (change of) liver, not elsewhere classified (principal) | CPT/HCPCS: 87480; 87510; 87660 ==

== ENCOUNTER 2024-09-07 09:37 | Outpatient (CLI) | payer MEDICARE, SELFPAY ==
[2024-09-07 13:48] LABS: Abs Immature Grans 0.02 10^3/uL (0.0-0.06); HCT 48.4 % (36.0-46.0); HGB 16.0 g/dL (11.2-15.7); Immature Grans % 0.2 %; MCH 30.7 pg (27.0-33.0); MCHC 33.1 % (32.0-36.0); MCV 93 fL (80-95); MPV 10.3 fL (8.0-11.0); Platelet Count 189 10^3/uL (130-400); RBC 5.22 10^6/uL (3.93-5.22); RDW 16.9 % (11.7-14.6); RDW-SD 58.1 fL; WBC 9.33 10^3/uL (4.4-10.8)
[2024-09-07 13:50] LABS: Glucose >=1000 mg/dL (Negative)
[2024-09-07 14:05] LABS: PROTEIN 46.0 mg/dL; Prot/Crea Ur Ratio 0.29
[2024-09-07 14:18] LABS: C & S Indicated? No; RBC 0-2 HPF (0-2); WBC Negative HPF (0-5)
[2024-09-07 14:26] LABS: Albumin 3.6 g/dL (3.4-5.0); Anion Gap 7.9 mmol/L (3-11); BUN 16 mg/dL (7-18); CO2 33.1 mmol/L (21.0-32.0); Calcium 9.3 mg/dL (8.5-10.1); Chloride 104 mmol/L (98-107); Estimated GFR 78.72 (mL/min/1.73m2); Glucose 134 mg/dL (74-106); Potassium 3.4 mmol/L (3.5-5.1); Sodium 145 mmol/L (136-145)
== END 2024-09-07 09:38 | disposition home or self-care (01) ==
LOC: LBO 09:37
PROVIDERS: PCP Nurse Practitioner Family; Visit Provider Registered Nurse Nephrology
DX: N18.32 Chronic kidney disease, stage 3b (principal)
CPT/HCPCS: 36415; 80048; 81003; 81015; 82040; 82565; 84100; 84156; 85025

== ENCOUNTER 2024-10-30 16:00 | Outpatient (CLI) | payer MEDICARE, SELFPAY ==
[2024-10-30 12:12] LABS: Anion Gap 8.2 mmol/L (3-11); BUN 15 mg/dL (7-18); CO2 32.8 mmol/L (21.0-32.0); Calcium 9.2 mg/dL (8.5-10.1); Chloride 100 mmol/L (98-107); Estimated GFR 78.72 (mL/min/1.73m2); Glucose 96 mg/dL (74-106); Potassium 3.6 mmol/L (3.5-5.1); Sodium 141 mmol/L (136-145)
== END 2024-10-30 16:01 | disposition home or self-care (01) ==
LOC: LBO 16:02
PROVIDERS: PCP Nurse Practitioner Family; Visit Provider Registered Nurse Nephrology
DX: I10 Essential (primary) hypertension (principal)
CPT/HCPCS: 36415; 80048